=== PATIENT | male | born 1970 | race Caucasian/White ===

== ENCOUNTER 2017-11-22 07:37 | Day surgery (SDC) | payer OTHER, SELFPAY ==
[2017-11-22] VITALS (8 sets, daily range): BP systolic 103–149; BP diastolic 57–97; PULSE 52–77; RESP 14–18; TEMP 36.3–36.9; O2SAT 89–100; BMI 34.9
--- NOTE | 2017-11-22 07:51 | EKG12_ITS ---
Test Reason : PRE-OP Blood Pressure : / mmHG Vent. Rate : 074 BPM Atrial Rate : 074 BPM P-R Int : 170 ms QRS Dur : 086 ms QT Int : 360 ms P-R-T Axes : 042 048 037 degrees QTc Int : 399 ms Normal sinus rhythm Normal ECG When compared with ECG of 12-FEB-2015 04:45, No significant change was found Confirmed by KARSTEN BENEDICT, HAILEE ([id number]), magazine editor RENE SWEENEY ([id number]) on 11/25/2017 4:04:14 PM Referred By: Darryl Tomlin Confirmed By:HAILEE SHELLEY MD
[2017-11-22 08:05] LABS: Hematocrit 43.9 % (40-54); Hemoglobin 15.1 g/dl (13.0-16.5); Mean Corp Hgb Conc 34.4 g/gl (32-36); Mean Corpuscular Hgb 32.5 pg (27.0-32.0); Mean Corpuscular Volume 94.4 fL (80-94); Mean Platelet Vol. 9.6 fl (6.2-12.0); Platelet Count 173 K/mm3 (150-450); RBC Distribution Width CV 11.8 % (11.6-14.6); RBC Distribution Width SD 40.4 fl (35.1-43.9); Red Blood Count 4.65 M/mm3 (4.6-6.2)
[2017-11-22 08:12] LABS: Scan Indicated on CBC? Y/N NO
--- NOTE | 2017-11-22 09:20 | HERN_PTH ---
PATIENT: MIRANDA PANCHAL LOC: [facility] [place] U#:[id number] AGE/SX: 47/M ROOM: RE11/22/[address]: Dr. Darryl Tomlin MD : 1970 BED: DIS: 11/22/2017 SPEC #: [id number] RECD: 11/22/17 11:44 STATUS: LUTHER SIMONE #: [id number] DELILAH: 11/22/17 09:[address]: Darryl Tomlin DEPT: SURGICAL PATHOLOGY RECD BY: Mayank Nettles ENTERED: 11/22/17 11:44 SP TYPE: Hernia OTHR DR: Dr. Monisha Kong MD Tissues: HERNIA Procedures: Surgery Specimen Level III HEADER OPERATION: Laparoscopic recurrent incisional hernia repair with mesh PRE-OP DIAGNOSIS: Recurrent incisional hernia TISSUE SUBMITTED: Old mesh and falciform ligament MICROSCOPIC DIAGNOSIS Old mesh and falciform ligament: A piece of adipose tissue, clinically falciform ligament. An old mesh (grossly only). SJ:shira 11/23/17 MICROSCOPIC DESCRIPTION Slides are reviewed. GROSS DESCRIPTION Received is one container labeled with the patient's name and not further designated. The specimen consists of two pieces of yellow adipose tissue measuring in aggregate 7.5 x 5 x 2 cm. Also present in the container is a mesh with attached adherent soft tissue measuring 8 x 5 x 1 cm. Sections of adipose tissue do not reveal any mass lesion. The mesh is for gross identification only. Salvage Inspector sections from adipose tissue are submitted in one cassette. / JOSE ARMANDO:shira 11/22/17 TC:5 CPT: 96441
[2017-11-22] MEDS: Cefazolin 2 GM in 0.9% Normal Saline 100 ML IV (09:53)
[2017-11-22] MEDS: Bupivacaine 0.25% 30 ML Vial (10:14)
--- NOTE | 2017-11-22 11:54 | PCM.OPRPT ---
Report of Operation Date of Procedure: 11/22/17 Pre-Operative Diagnosis: recurrent incisional hernia at umbilicus Post-Operative Diagnosis: recurrent incisional hernia at umbilicus, small bowel adherent to mesh, abdominal wall Surgery/Procedure Performed:: laparoscopic lysis of adhesions, laparoscopic removal of old mesh and laparoscopic repair of recurrent incisional hernia with VentrioST [id number] change person: None change person: Ally Baxter Type of Anesthesia:: General Anesthesiologist: Evgeny Dick ASA2 Specimen's removed: old mesh, falciform ligament Estimated Blood Loss (mL): <25 Fluids Replaced: 1600 Description of Procedure: The patient was brought to the operating suite. Sign in was performed verifying patient, site, procedure, position, and DVT prophylaxis with SCDs. Patient received 2 g Ancef antibiotic prophylaxis. Following induction of general anesthetic, the patients abdomen was prepped and draped in the usual fashion. Timeout was performed verifying patient, site, position. Local anesthetic was injected . A linear incision was made and dissection carried down at the recurrent defect just above the level of the umbilicus. The hernia sac and the hernia sac was opened . 2 stay sutures were placed and the Rasheed trochar was inserted and secured with the stay sutures. There were significant adhesions to the omentum, but the laparoscope was able to be inserted through the omentum and visualize the left lateral abdominal wall. 3- 5mm ports were placed in the far left lateral position. There was omentum, loops of small bowel, sigmoid colon adherent to the midline and at the site of the previous mesh repair. The PTFE mesh, which appeared to be a circular ventralex mesh was somewhat displaced to the right and inferior with the recurrence being superior and to the left. These adhesions were dissected off the mesh and abdominal wall. The sigmoid colon and small bowel adhesions were very carefully dissected sharply using laparoscopic Metzenbaum scissors . The previous piece of displaced mesh was fully dissected and removed, including removal of all tacks to allow flat placement of the intra-abdominal mesh. The falciform ligament was also divided to prevent tenting. A ventrio ST mesh [id number] placed intra-abdominally. A Prolene suture was placed through the superioraspect of the mesh brought up with a Granee needle to just below the umbilical fascial defect. Prolene sutures were placed transfixing the fascia at 12 , 6 , 3 and 9:00 using a GraNee needle . The mesh was then tacked using a secure strap tacker around the outer rim of the mesh and then in multiple locations in the inner mesh. A permanent tacker was also placed at the 12, 6, 3, and 9:00 positions to allow radiographic identification of the limits of the mesh margin. Subcutaneous fat was closed with interrupted 3-0 Vicryl suture. Skin was closed with a running and inturrepted 4-0 Monocryl subcuticular sutures. Steri-Strips and bandages were applied. The patient was brought to recovery room in stable condition. Grafts/Implants Used: ventrio ST [id number] Lot [id number] 06/26/2018 - Admit VTE Documentation VTE Present on Admission: No VTE Mechan Device Prophylaxis: SCD's VTE Pharm Prophylaxis ordered?: No
--- NOTE | 2017-11-22 11:57 | OP.PCM_ITS ---
Report of Operation Date of Procedure: 11/22/17 Pre-Operative Diagnosis: recurrent incisional hernia at umbilicus Post-Operative Diagnosis: recurrent incisional hernia at umbilicus, small bowel adherent to mesh, abdominal wall Surgery/Procedure Performed:: laparoscopic lysis of adhesions, laparoscopic removal of old mesh and laparoscopic repair of recurrent incisional hernia with VentrioST [id number] admission specialist: None admission specialist: Ally Baxter Type of Anesthesia:: General Anesthesiologist: Evgeny Dick ASA2 Specimen's removed: old mesh, falciform ligament Estimated Blood Loss (mL): <25 Fluids Replaced: 1600 Description of Procedure: The patient was brought to the operating suite. Sign in was performed verifying patient, site, procedure, position, and DVT prophylaxis with SCDs. Patient received 2 g Ancef antibiotic prophylaxis. Following induction of general anesthetic, the patient?s abdomen was prepped and draped in the usual fashion. Timeout was performed verifying patient, site , position. Local anesthetic was injected . A linear incision was made and dissection carried down at the recurrent defect just above the level of the umbilicus. The hernia sac and the hernia sac was opened . 2 stay sutures were placed and the Rasheed trochar was inserted and secured with the stay sutures. There were significant adhesions to the omentum, but the laparoscope was able to be inserted through the omentum and visualize the left lateral abdominal wall. 3- 5mm ports were placed in the far left lateral position. There was omentum, loops of small bowel, sigmoid colon adherent to the midline and at the site of the previous mesh repair. The PTFE mesh, which appeared to be a circular ventralex mesh was somewhat displaced to the right and inferior with the recurrence being superior and to the left. These adhesions were dissected off the mesh and abdominal wall. The sigmoid colon and small bowel adhesions were very carefully dissected sharply using laparoscopic Metzenbaum scissors . The previous piece of displaced mesh was fully dissected and removed, including removal of all tacks to allow flat placement of the intra-abdominal mesh. The falciform ligament was also divided to prevent tenting. A ventrio ST mesh [id number] placed intra-abdominally. A Prolene suture was placed through the superioraspect of the mesh brought up with a Granee needle to just below the umbilical fascial defect. Prolene sutures were placed transfixing the fascia at 12 , 6 , 3 and 9:00 using a GraNee needle . The mesh was then tacked using a secure strap tacker around the outer rim of the mesh and then in multiple locations in the inner mesh. A permanent tacker was also placed at the 12, 6, 3, and 9:00 positions to allow radiographic identification of the limits of the mesh margin. Subcutaneous fat was closed with interrupted 3-0 Vicryl suture. Skin was closed with a running and inturrepted 4-0 Monocryl subcuticular sutures. Steri- Strips and bandages were applied. The patient was brought to recovery room in stable condition. Grafts/Implants Used: ventrio ST [id number] 06/26/2018 - Admit VTE Documentation VTE Present on Admission: No VTE Mechan Device Prophylaxis: SCD's VTE Pharm Prophylaxis ordered?: No
--- NOTE | 2017-11-22 12:01 | DCINST_ITS ---
Discharge Diet: Light diet - advance as tolerated Discharge Activity: Return to Normal Activity, May Drive - when you are no longer taking narcotic pain medications., May Shower - with the bandage in place 1-2 days after surgery. Lifting Restrictions: 20 pounds for 8 weeks. Additional Activity Instructions:: Climbing stairs is fine, walking is encouraged. Sitting in bed may be uncomfortable. Sitting up using your lateral muscles (sitting up sideways) is usually more comfortable. Do not drive, work heavy equipment of sign legal documents for 24 hours. If your hernia repair was an ingunial repair, you may have scrotal swelling, an ice pack and/or athletic support can provide more comfort. Pain medications may cause nausea, you should typically eat light foods as you take your pain medications. Pain medications may also cause constipation. If you have difficulty with this, discuss with your doctor. Call your doctor if your incision/area has: Continuous Slow Oozing, Sudden Increased Bleeding, Increased Pain/ Swelling, Increased Redness, Foul Smelling Discharge Call your doctor if you observe: Fever of 101 or Higher Suture Line Care: Avoid Pulling/Pushing, Avoid Pinching/Bending Additional Dressing/Incision Instructions:: Leave the operative bandage on for 2 -3 days. When you remove the bandage, leave the steri-strips on place until your follow up appointment or they fall off. Allergies/Adverse Reactions: Allergies No Known Allergies Allergy (Verified 11/19/17 09:42) Medications to take at Discharge Oxycodone [Oxyir] 5 mg PO Q4H PRN PRN 7 Days #20 tab 11/22/17 The following prescriptions were given: Oxycodone [Oxyir] 5 mg PO Q4H PRN PRN 7 Days #20 tab PRN Reason: Severe Pain (6-06/08) Primary Care Physician: Monisha Kong MD [Primary Care Provider] - Please Follow Up With: Darryl Tomlin MD - [phone] When: Plan to have a follow up appointment in 7 days. Call to schedule.
[2017-11-22] MEDS: oxyCODONE 5 MG Tablet PO (13:18)
== END 2017-11-22 15:33 | disposition home or self-care (01) ==
LOC: SDC 07:39 → AC 07:39
PROVIDERS: Family Provider Internal Medicine; PCP Internal Medicine; Visit Provider Surgery
PROC: 0WQF4ZZ Repair Abdominal Wall, Percutaneous Endoscopic Approach (ICD-10-PCS; CPT 22999; principal; 2017-11-22 09:00)
DX: K43.2 Incisional hernia without obstruction or gangrene (principal); K66.0 Peritoneal adhesions (postprocedural) (postinfection); T83.718A Erosion of other implanted mesh to organ or tissue, initial encounter; F17.220 Nicotine dependence, chewing tobacco, uncomplicated; Z87.442 Personal history of urinary calculi; Z87.891 Personal history of nicotine dependence
CPT/HCPCS: 22999; 49656; 36415; 85027; 88300; 88302; 88304; 93005; J7120; C1781; J2405